=== PATIENT | female | born 1965 | race Two or more races ===

== ENCOUNTER 2021-09-19 16:40 | Emergency (ER) | payer OTHER ==
[~2021-09-19] VITALS: Ht 149.9 cm; Wt 61.2 kg
[2021-09-19] MEDS ORDERED: ESCI10TA PO (17:14)
[2021-09-19] MEDS ORDERED: IBUP-2780 PO (17:14)
[2021-09-19] MEDS ORDERED: TEMA15CA PO (17:14)
[2021-09-19] MEDS ORDERED: LORA-259 PO (17:14)
[2021-09-19] MEDS ORDERED: MORPHINE SULFATE 4 MG/1 ML DISP.SYRIN ONE (17:41)
[2021-09-19] MEDS ORDERED: MORPHINE SULFATE 4 MG/1 ML DISP.SYRIN IM ONE (17:45)
--- NOTE | 2021-09-19 18:35 | NUR ---
Called [facility] for transport back to [facility] [place], eta 90 mins. Spoke with Randy at facility and notified him pt will be d/c back to their facility.
[2021-09-19] MEDS ORDERED: NAPR-1164 PO (19:04)
--- NOTE | 2021-09-19 19:04 | NUR ---
Pt d/c back to [facility] via [facility].
== END 2021-09-19 19:05 | disposition home or self-care (01) ==
LOC: ER 16:44
DX: S29.9XXA Unspecified injury of thorax, initial encounter (principal); W18.30XA Fall on same level, unspecified, initial encounter; Y92.89 Other specified places as the place of occurrence of the external cause; J20.8 Acute bronchitis due to other specified organisms; Z20.822 Contact with and (suspected) exposure to COVID-19; Z88.6 Allergy status to analgesic agent; Z91.011 Allergy to milk products; M32.9 Systemic lupus erythematosus, unspecified; J45.909 Unspecified asthma, uncomplicated; F31.9 Bipolar disorder, unspecified; F41.9 Anxiety disorder, unspecified; M79.7 Fibromyalgia
CPT/HCPCS: 71045; 87426; 93005; 96372; 99285; J2270; A4663